=== PATIENT | female | born 1940 | race African-American/Black ===

== ENCOUNTER 2018-08-12 08:49 | Outpatient (CLI) | payer MEDICARE | END 2018-08-12 08:50 | disposition home or self-care (01) | LOC: BICMAMMO 08:49 | PROVIDERS: ATTEND Internal Medicine | DX: Z12.31 Encounter for screening mammogram for malignant neoplasm of breast (principal) | CPT/HCPCS: 77063; 77067 ==

== ENCOUNTER 2019-08-17 10:35 | Outpatient (CLI) | payer MEDICARE ==
--- NOTE | 2019-08-17 11:33 | BD ---
EXAM: DEXA bone density examination HISTORY: Possible screening, menopause and perimenopausal disorder of bone COMPARISON: None FINDINGS: L1--bone mineral density 0.886 g/sq cm; T score -0.9. Z score 1.3 L2--bone mineral density 0.949 g/sq cm; T score -0.7; Z score 1.8 L3--bone mineral density 0.915 g/sq cm; T score -1.5; Z score 1.1 L4--bone mineral density 0.948 g/sq cm; T score -1.0, Z score 1.7 Total L1-L4--bone mineral density 0.926 g/sq cm; T score -1.1, Z score 1.4 Left femoral neck--bone mineral density0.786; T score -0.6, Z score 1.6 Total proximal left femur--bone mineral density 1.086; T score 1.2, Z score 3.1 This patient has a 10 year WHO fracture risk of a major osteoporotic fracture of 4.3% and of a hip fr acture of 0.6%. IMPRESSION: Based on the WHO criteria, the patient's bone mineral density is consideredOsteopenic. T he patient is at moderate risk for fracture.
--- NOTE | 2019-08-17 12:12 | MMO ---
Bilateral MAMMO Bilat Screen [facility]. CLINICAL HISTORY: Patient is 79 years old and is seen for screening. The patient has no family history of breast cancer. The patient has no personal history of cancer. VIEWS: The views performed were: bilateral craniocaudal with tomosynthesis and bilateral mediolateral oblique with tomosynthesis. FILMS COMPARED: The present examination has been compared to prior imaging studies performed at [facility] on 08/07/2015, 08/08/2016, 08/11/2017 and 08/12/2018. This study has been interpreted with the assistance of computer-aided detection. MAMMOGRAM FINDINGS: The breasts are almost entirely fat. There are no suspicious masses, suspicious calcifications, or new areas of architectural distortion. IMPRESSION: THERE IS NO MAMMOGRAPHIC EVIDENCE OF MALIGNANCY. A ROUTINE FOLLOW-UP MAMMOGRAM IN 1 YEAR IS RECOMMENDED. THE RESULTS OF THIS EXAM WERE SENT TO THE PATIENT. ACR BI-RADS Category 1 - Negative MAMMOGRAPHY NOTE: 1. A negative mammogram report should not delay a biopsy if a dominant of clinically suspicious mass is present. 2. Approximately 10% to 15% of breast cancers are not detected by mammography. 3. Adenosis and dense breasts may obscure an underlying neoplasm. Reported by: REJI COFFMAN MD Electonically Signed: [id number]
== END 2019-08-17 10:36 | disposition home or self-care (01) ==
LOC: BICMAMMO 10:35
PROVIDERS: ATTEND Internal Medicine
DX: Z12.31 Encounter for screening mammogram for malignant neoplasm of breast (principal); Z13.820 Encounter for screening for osteoporosis; Z95.1 Presence of aortocoronary bypass graft; M85.80 Other specified disorders of bone density and structure, unspecified site
CPT/HCPCS: 77063; 77067; 77080

== ENCOUNTER 2019-10-14 11:15 | Outpatient (CLI) | payer MEDICARE ==
--- NOTE | 2019-10-14 12:04 | RAD ---
THREE VIEWS OF THE RIGHT THUMB: COMPARISON: None. HISTORY: Painful thumb and subungual hematoma of the right thumb. FINDINGS: Three views right thumb show no evidence of acute fracture or dislocation. No radiopaque foreign bod y is seen. There is joint space narrowing of the interphalangeal joint of the thumb and 1st CMC join t consistent with osteoarthritis. 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 POS: CET
== END 2019-10-14 11:16 | disposition home or self-care (01) ==
LOC: BICRAD 11:15
PROVIDERS: ATTEND Internal Medicine
DX: S60.111A Contusion of right thumb with damage to nail, initial encounter (principal); M19.041 Primary osteoarthritis, right hand

== ENCOUNTER 2020-09-12 07:59 | Outpatient (CLI) | payer MEDICARE ==
--- NOTE | 2020-09-12 09:07 | MMO ---
Bilateral MAMMO Bilat Screen [facility]. CLINICAL HISTORY: Patient is 80 years old and is seen for screening. The patient has no family history of breast cancer. The patient has no personal history of cancer. VIEWS: The views performed were: bilateral craniocaudal with tomosynthesis and bilateral mediolateral oblique with tomosynthesis. FILMS COMPARED: The present examination has been compared to prior imaging studies performed at [facility] on 08/08/2016, 08/11/2017, 08/12/2018 and 08/17/2019. This study has been interpreted with the assistance of computer-aided detection. MAMMOGRAM FINDINGS: There are scattered fibroglandular densities. There are no suspicious masses, suspicious calcifications, or new areas of architectural distortion. IMPRESSION: THERE IS NO MAMMOGRAPHIC EVIDENCE OF MALIGNANCY. A ROUTINE FOLLOW-UP MAMMOGRAM IN 1 YEAR IS RECOMMENDED. THE RESULTS OF THIS EXAM WERE SENT TO THE PATIENT. ACR BI-RADS Category 1 - Negative MAMMOGRAPHY NOTE: 1. A negative mammogram report should not delay a biopsy if a dominant of clinically suspicious mass is present. 2. Approximately 10% to 15% of breast cancers are not detected by mammography. 3. Adenosis and dense breasts may obscure an underlying neoplasm. Reported by: RUPALI BRITTON MD Electonically Signed: [id number]
--- NOTE | 2020-09-12 10:10 | ULT ---
ABDOMINAL AORTIC ULTRASOUND: Date: 09/12/2020 HISTORY: Abdominal aortic aneurysm screening. FINDINGS: Real-time imaging of the abdominal aorta shows a normal caliber aorta. Proximally, the aorta measures 1.6 cm. Mid measurements are 1.7 cm and distal are 1.3 cm. Right and left iliac arteries are in the 1.0 cm range. IMPRESSION: No evidence of abdominal aortic aneurysm. POS: OFF
== END 2020-09-12 08:00 | disposition home or self-care (01) ==
LOC: BICULT 07:59
PROVIDERS: ATTEND Internal Medicine
DX: Z12.31 Encounter for screening mammogram for malignant neoplasm of breast (principal); Z13.6 Encounter for screening for cardiovascular disorders
CPT/HCPCS: 76775; 77063; 77067

== ENCOUNTER 2022-01-30 09:25 | Outpatient (CLI) | payer MEDICARE | END 2022-01-30 09:26 | disposition home or self-care (01) | LOC: BICMAMMO 09:25 | PROVIDERS: ATTEND Internal Medicine | DX: Z12.31 Encounter for screening mammogram for malignant neoplasm of breast (principal) | CPT/HCPCS: 77063; 77067 ==